=== PATIENT | male | born 1975 | race Caucasian/White ===

== ENCOUNTER 2020-05-03 14:16 | Emergency (ER) | payer OTHER ==
[~2020-05-03] VITALS: Ht 170.2 cm; Wt 95.7 kg
[2020-05-03] MEDS ORDERED: LIPITOR 20 MG T20 M1 PO (14:25)
[2020-05-03] MEDS ORDERED: KEFLEX500 M1 PO (14:36)
[2020-05-03 15:05] VITALS: BP 145/65
== END 2020-05-03 15:06 | disposition home or self-care (01) ==
LOC: M.ERS 14:16
DX: S61.211A Laceration without foreign body of left index finger without damage to nail, initial encounter (principal); E78.5 Hyperlipidemia, unspecified; Z79.899 Other long term (current) drug therapy; W29.8XXA Contact with other powered hand tools and household machinery, initial encounter; Y93.89 Activity, other specified; Y92.89 Other specified places as the place of occurrence of the external cause; Y99.8 Other external cause status